=== PATIENT | male | born 1980 | race Caucasian/White ===

== ENCOUNTER 2021-10-04 09:43 | Emergency (ER) | payer BC ==
[2021-10-04 09:53] VITALS: RESP 16; TEMP 98.2
[2021-10-04] MEDS ORDERED: SODIUM CHLORIDE 0.9% 1,000 ML IV ONE (10:09)
[2021-10-04] MEDS ORDERED: KETOROLAC 15 MG/ML 1 ML VIAL IVP STA (10:09)
--- NOTE | 2021-10-04 10:39 | ED ---
General Adult HPI - General Chief complaint: Urogenital Stated complaint: Urogenital/[place] Time Seen by Provider: 10/04/21 09:56 Source: patient, RN notes reviewed, old records reviewed Mode of arrival: ambulatory Limitations: no limitations - History of Present Illness Initial comments: 41-year-old male presenting for evaluation of bilateral flank pain and hematuria. He is also has some nausea without significant vomiting. No fever. His pain is in both right and left flanks. He has no previous history of renal stone. He states that he had significant blood in his urine yesterday which did clear slightly. He has no penile rash or lesion. No testicular pain or swelling. - Related Data Previous Rx's Medication Instructions Recorded Ibuprofen [Motrin] 800 mg PO Q6HR PRN #20 tab 08/07/15 Amoxic-Pot Clav 875-125Mg 1 tab PO Q12HR #14 tablet 08/17/19 [Augmentin 875-125] Famotidine [Pepcid] 20 mg PO BID #30 tablet 08/17/19 Cefpodoxime Proxetil [Vantin] 200 mg PO Q12HR 10 Days #20 tab 10/04/21 Allergies Allergy/AdvReac Type Severity Reaction Status Date / Time No Known Allergies Allergy Verified 10/04/21 09:53 Review of Systems ROS Statement: Those systems with pertinent positive or pertinent negative responses have been documented in the HPI. ROS Other: All systems not noted in ROS Statement are negative. Past Medical History Past Medical History: GERD/Reflux Additional Past Medical History / Comment(s): Past tension headaches History of Any Multi-Drug Resistant Organisms: None Reported Past Surgical History: No Surgical Hx Reported Additional Past Surgical History / Comment(s): Pt has never had surgery Past Anesthesia/Blood Transfusion Reactions: Unable to Obtain Past Psychological History: ADD/ADHD Smoking Status: Current every day smoker Past Alcohol Use History: Occasional Past Drug Use History: None Reported - Past Family History Father Family Medical History: Myocardial Infarction ([place]) Additional Family Medical History / Comment(s): Father of a NH at the age of 62 yrs. Mother Family Medical History: No Reported History Additional Family Medical History / Comment(s): Mother is healthy General Exam Limitations: no limitations General appearance: alert, in no apparent distress Head exam: Present: atraumatic, normocephalic Eye exam: Present: normal appearance, PERRL ENT exam: Present: normal exam Neck exam: Present: normal inspection. Absent: tenderness, meningismus Respiratory exam: Present: normal lung sounds bilaterally. Absent: respiratory distress, wheezes Cardiovascular Exam: Present: regular rate, normal rhythm GI/Abdominal exam: Present: soft. Absent: distended, tenderness Extremities exam: Present: normal inspection, normal capillary refill. Absent: pedal edema, calf tenderness Neurological exam: Present: alert, oriented X3, CN II-XII intact. Absent: motor sensory deficit Psychiatric exam: Present: normal affect, normal mood Skin exam: Present: warm, dry, intact. Absent: cyanosis, diaphoretic Course Vital Signs 10/04/21 09:50 Temperature 98.2 F Pulse Rate 67 Respiratory 16 Rate Blood Pressure 126/81 O2 Sat by Pulse 97 Oximetry Medical Decision Making - Medical Decision Making CT negative for acute findings. CBC, CMP unremarkable. There is 9 white cells and rare bacteria in the urine. Patient was concern for possible STDs, GC and chlamydia are pending. He prefers to wait on this testing before treatment. He will be started on Keflex awaiting urine culture results. Given return parameters and will follow-up with his primary care physician. - Lab Data Result diagrams: 10/04/21 10:14 10/04/21 10:14 Lab Results 10/04/21 10/04/21 10/04/21 Range/Units 10:14 10:14 10:40 WBC 7.8 (3.8-10.6) k/uL RBC 4.99 (4.30-5.90) m/uL Hgb 16.0 (13.0-17.5) gm/dL Hct 47.7 (39.0-53.0) % MCV 95.6 (80.0-100.0) fL MCH 32.2 (25.0-35.0) pg MCHC 33.6 (31.0-37.0) g/dL RDW 13.4 (11.5-15.5) % Plt Count 315 (150-450) k/uL MPV 9.1 Neutrophils % 72 % Lymphocytes % 18 % Monocytes % 5 % Eosinophils % 2 % Basophils % 0 % Neutrophils # 5.6 (1.3-7.7) k/uL Lymphocytes # 1.4 (1.0-4.8) k/uL Monocytes # 0.4 (0-1.0) k/uL Eosinophils # 0.1 (0-0.7) k/uL Basophils # 0.0 (0-0.2) k/uL Sodium 140 (137-145) mmol/L Potassium 3.9 (3.5-5.1) mmol/L Chloride 109 H (98-107) mmol/L Carbon Dioxide 23 (22-30) mmol/L Anion Gap 8 mmol/L BUN 10 (9-20) mg/dL Creatinine 0.84 (0.66-1.25) mg/dL Est GFR (CKD-EPI)AfAm >90 (>60 ml/min/1.73 sqM) Est GFR (CKD-EPI)NonAf >90 (>60 ml/min/1.73 sqM) Glucose 110 H (74-99) mg/dL Calcium 9.4 (8.4-10.2) mg/dL Total Bilirubin 1.6 H (0.2-1.3) mg/dL AST 24 (17-59) U/L ALT 19 (4-49) U/L Alkaline Phosphatase 101 (38-126) U/L Total Protein 6.7 (6.3-8.2) g/dL Albumin 4.2 (3.5-5.0) g/dL Urine Color Yellow Urine Appearance Clear (Clear) Urine pH 6.0 (5.0-8.0) Ur Specific [place] 1.016 (1.001-1.035) Urine Protein Negative (Negative) Urine Glucose (UA) Negative (Negative) Urine Ketones Negative (Negative) Urine Blood Negative (Negative) Urine Nitrite Negative (Negative) Urine Bilirubin Negative (Negative) Urine Urobilinogen <2.0 (<2.0) mg/dL Ur Leukocyte Esterase Moderate H (Negative) Urine RBC <1 (0-5) /hpf Urine WBC 9 H (0-5) /hpf Ur Squamous Epith Cells <1 (0-4) /hpf Urine Bacteria Rare H (None) /hpf Hyaline Casts 6 H (0-2) /lpf Urine Mucus Few H (None) /hpf Disposition Clinical Impression: UTI (urinary tract infection) Disposition: HOME SELF-CARE Condition: Good Instructions (If sedation given, give patient instructions): Urinary Tract Infection in Men (ED) Prescriptions: Cefpodoxime Proxetil [Vantin] 200 mg PO Q12HR 10 Days #20 tab Is patient prescribed a controlled substance at d/c from ED?: No Referrals: Devan Sales MD [Primary Care Provider] - 1-2 days Time of Disposition: 11:08
[2021-10-04 10:44] LABS: ALT 19 U/L (4-49); AST 24 U/L (17-59); African American GFR (CKD) >90 (>60 ml/min/1.73 sqM); Albumin 4.2 g/dL (3.5-5.0); Alkaline Phosphatase 101 U/L (38-126); Anion Gap 8 mmol/L; Blood Urea Nitrogen 10 mg/dL (9-20); Calcium 9.4 mg/dL (8.4-10.2); Carbon Dioxide 23 mmol/L (22-30); Chloride 109 mmol/L (98-107); Glucose 110 mg/dL (74-99); Non-African American GFR(CKD) >90 (>60 ml/min/1.73 sqM); Potassium 3.9 mmol/L (3.5-5.1); Sodium 140 mmol/L (137-145); Total Bilirubin 1.6 mg/dL (0.2-1.3); Total Protein 6.7 g/dL (6.3-8.2)
[2021-10-04 10:49] LABS: Basophils % (A) 0 %; Eosinophils # (A) 0.1 k/uL (0-0.7); Eosinophils % (A) 2 %; HCT 47.7 % (39.0-53.0); Lymphocytes # (A) 1.4 k/uL (1.0-4.8); Lymphocytes % (A) 18 %; MCH 32.2 pg (25.0-35.0); MCHC 33.6 g/dL (31.0-37.0); MCV 95.6 fL (80.0-100.0); Mean Platelet Volume 9.1; Monocytes # (A) 0.4 k/uL (0-1.0); Monocytes % (A) 5 %; Neutrophils # (A) 5.6 k/uL (1.3-7.7); Neutrophils % (A) 72 %; Platelet Count 315 k/uL (150-450); RBC 4.99 m/uL (4.30-5.90); RDW 13.4 % (11.5-15.5); WBC 7.8 k/uL (3.8-10.6)
--- NOTE | 2021-10-04 10:58 | CT ---
EXAMINATION TYPE: CT abdomen pelvis wo con DATE OF EXAM: 10/04/2021 HISTORY: hematuria, bilateral flank pain into low back. CT DLP: 725.5 mGycm. Automated Exposure Control for Dose Reduction was Utilized. TECHNIQUE: CT scan of the abdomen and pelvis is performed without oral or IV contrast. COMPARISON: Prior CT 2011 FINDINGS: Within the limitations of a non-contrast study, the following observations are made. LUNG BASES: Dependent atelectasis. LIVER/GB: No significant abnormality is appreciated. PANCREAS: No significant abnormality is seen. SPLEEN: No significant abnormality is seen. ADRENALS: No significant abnormality is seen. KIDNEYS: No renal calculi or hydronephrosis is seen bilaterally. BOWEL: Incidental normal-appearing appendix redemonstrated. GENITAL ORGANS: Normal sized prostate. Scattered bilateral pelvic phleboliths are more prominent from prior LYMPH NODES: No greater than 1cm abdominal or pelvic lymph nodes are appreciated. OSSEOUS STRUCTURES: No significant abnormality is seen. OTHER: Mild to moderate calcified plaque of the distal abdominal aorta extends into iliac branch vess els. Small fat-containing left inguinal hernia. IMPRESSION: No renal stones or hydronephrosis is seen bilaterally. No suspicious new or acute finding s present.
[2021-10-04 11:00] LABS: Appearance,Urine Clear (Clear); Bacteria,Urine Rare /hpf; Bilirubin,Urine Negative (Negative); Blood,Urine Negative (Negative); Color,Urine Yellow; Glucose,Urine (UA) Negative (Negative); Hyaline Casts,Urine 6 /lpf (0-2); Ketones,Urine Negative (Negative); Leukocyte Esterase,Urine Moderate (Negative); Mucus,Urine Few /hpf; Nitrite,Urine Negative (Negative); Protein,Urine Negative (Negative); RBC,Urine <1 /hpf (0-5); Specific Gravity,Urine 1.016 (1.001-1.035); Squamous Epithelial Cell,Urine <1 /hpf (0-4); Urobilinogen,Urine <2.0 mg/dL (<2.0); WBC,Urine 9 /hpf (0-5)
[2021-10-04 11:19] VITALS: BP 121/83; PULSE 72
[2021-10-05 14:16] LABS: C. trachomatis,PCR Negative (Neg,Equiv); Chlamydia trachomatis Source Urine; N. gonorrhoeae,PCR Negative (Neg,Equiv); Neisseria Source Urine
== END 2021-10-04 11:38 | disposition home or self-care (01) ==
LOC: EC 09:43
DX: N39.0 Urinary tract infection, site not specified (principal); F17.200 Nicotine dependence, unspecified, uncomplicated
CPT/HCPCS: 36415; 80053; 85025; 81001; 87491; 87591; 74176; 99284; 96374; 96361; J1885

== ENCOUNTER 2022-02-04 03:37 | Inpatient (IN) | payer BC ==
[2022-02-04] MEDS ORDERED: NICOTINE 21MG/24HR PATCH TRANSDERM STA (04:05)
[2022-02-04 04:37] LABS: Amphetamine Screen,Urine Not Detected (NotDetected); Barbiturate Screen,Urine Not Detected (NotDetected); Benzodiazepines Screen,Urine Not Detected (NotDetected); Cocaine Screen,Urine Not Detected (NotDetected); Methadone Screen, Urine Not Detected (NotDetected); Opiate Screen,Urine Not Detected (NotDetected); Oxycodone Screen, Urine Not Detected (NotDetected); Phencyclidine Screen,Urine Not Detected (NotDetected); Tricyclic Antidepressant,Urine Not Detected (NotDetected); Urn Cannabinoid Scrn Not Detected (NotDetected)
--- NOTE | 2022-02-04 15:00 | ED ---
General Adult HPI - General Source: family, EMS Mode of arrival: EMS Limitations: no limitations <MarbinTaiwo - Last Filed: 02/05/22 08:46> - History of Present Illness -: hour(s) Severity scale (1-10): 0 Consistency: constant Improves with: none Worsens with: none Associated Symptoms: denies other symptoms <Jomar Mcleod - Last Filed: 02/09/22 05:37> - General Chief complaint: Psychiatric Symptoms Stated complaint: Mental Health Time Seen by Provider: 02/04/22 04:00 - History of Present Illness Initial comments: This patient is a 41-year-old man brought to have psychiatric evaluation after making suicidal statements to his family member. When I interviewed the patient, he did not want to discuss that episode. Denies medical complaint. (Jomar Mcleod) - Related Data Home Medications Medication Instructions Recorded Confirmed No Known Home Medications 02/04/22 02/04/22 Previous Rx's Medication Instructions Recorded FLUoxetine HCL [PROzac] 30 mg PO DAILY 30 Days cap 02/08/22 traZODone HCL [Desyrel] 100 mg PO HS PRN 30 Days tab 02/08/22 Allergies Allergy/AdvReac Type Severity Reaction Status Date / Time No Known Allergies Allergy Verified 02/04/22 12:23 Review of Systems ROS Other: All systems not noted in ROS Statement are negative. <Taiwo Zazueta - Last Filed: 02/05/22 08:46> ROS Other: All systems not noted in ROS Statement are negative. Constitutional: Denies: fever Respiratory: Denies: cough, dyspnea Cardiovascular: Denies: chest pain, palpitations Gastrointestinal: Denies: abdominal pain, vomiting Genitourinary: Denies: dysuria, hematuria Musculoskeletal: Denies: back pain Skin: Denies: rash Neurological: Denies: headache Psychiatric: Reports: as per HPI, suicidal thoughts. Denies: auditory hallucinations, visual hallucinations, homicidal thoughts <Jomar Mcleod - Last Filed: 02/09/22 05:37> ROS Statement: Those systems with pertinent positive or pertinent negative responses have been documented in the HPI. Past Medical History Past Medical History: GERD/Reflux Additional Past Medical History / Comment(s): Past tension headaches History of Any Multi-Drug Resistant Organisms: None Reported Past Surgical History: No Surgical Hx Reported Additional Past Surgical History / Comment(s): Pt has never had surgery Past Anesthesia/Blood Transfusion Reactions: Unable to Obtain Past Psychological History: ADD/ADHD Smoking Status: Current every day smoker Past Alcohol Use History: Occasional Past Drug Use History: None Reported - Past Family History Father Family Medical History: Myocardial Infarction (MS) Additional Family Medical History / Comment(s): Father of a [place] at the age of 62 yrs. Mother Family Medical History: No Reported History Additional Family Medical History / Comment(s): Mother is healthy <MarbinTaiwo - Last Filed: 02/05/22 08:46> General Exam Limitations: no limitations <MarbinTaiwo - Last Filed: 02/05/22 08:46> General appearance: alert, in no apparent distress Head exam: Present: atraumatic, normocephalic Eye exam: Present: normal appearance. Absent: scleral icterus, conjunctival injection Neck exam: Present: normal inspection Respiratory exam: Present: normal lung sounds bilaterally. Absent: respiratory distress, wheezes, rales, rhonchi, stridor Cardiovascular Exam: Present: regular rate, normal rhythm, normal heart sounds. Absent: systolic murmur, diastolic murmur, rubs, gallop GI/Abdominal exam: Present: soft. Absent: distended, tenderness, guarding, rebound Extremities exam: Present: normal inspection Neurological exam: Present: alert Psychiatric exam: Present: suicidal ideation. Absent: agitated, anxious, flat affect, manic, homicidal ideation Skin exam: Present: warm, dry, intact, normal color. Absent: rash <Jomar Mcleod - Last Filed: 02/09/22 05:37> Course Vital Signs 02/04/22 03:46 Temperature 97.5 F L Pulse Rate 81 Respiratory 18 Rate Blood Pressure 151/92 O2 Sat by Pulse 98 Oximetry Medical Decision Making <Taiwo Zazueta - Last Filed: 02/05/22 08:46> - Lab Data Result diagrams: 02/05/22 09:59 02/05/22 09:59 <Jomar Mcleod - Last Filed: 02/09/22 05:37> - Medical Decision Making Patient was signed out to me pending psychiatric evaluation. Was medically cleared by the prior physician Dr. Mcleod. Patient was petitioned. Petition states "he had a gun held under his chin. He said he couldn't live anymore." P atient was petitioned by his friend/sister. EPS evaluated the patient and would like to admitted to inpatient psychiatry. Certification was completed by myself. Patient does not want to be admitted. He and family members are asking to speak with EPS again. I notified EPS. (Taiwo Zazueta) - Lab Data Lab Results 02/04/22 02/04/22 Range/Units 04:01 17:18 Urine Opiates Screen Not Detected (NotDetected) Ur Oxycodone Screen Not Detected (NotDetected) Urine Methadone Screen Not Detected (NotDetected) Ur Propoxyphene Screen Not Detected (NotDetected) Ur Barbiturates Screen Not Detected (NotDetected) U Tricyclic Antidepress Not Detected (NotDetected) Ur Phencyclidine Scrn Not Detected (NotDetected) Ur Amphetamines Screen Not Detected (NotDetected) U Methamphetamines Scrn Not Detected (NotDetected) U Benzodiazepines Scrn Not Detected (NotDetected) Urine Cocaine Screen Not Detected (NotDetected) U Marijuana (THC) Screen Not Detected (NotDetected) Coronavirus (PCR) Not Detected (Not Detectd) Disposition <Taiwo Zazueta - Last Filed: 02/05/22 08:46> <Jomar Mcleod - Last Filed: 02/09/22 05:37> Clinical Impression: Suicidal behavior, Encounter for psychiatric assessment Disposition: TRANSFER TO PSYCH HOSP/UNIT Condition: Stable
[2022-02-04] MEDS ORDERED: LORazepam 1 MG TAB PO STA (15:48)
[2022-02-04] MEDS ORDERED: haloperidoL 5 MG TAB PO PRN (19:18)
[2022-02-04] MEDS ORDERED: LORazepam 1 MG/0.5 ML VIAL IM PRN (19:18)
[2022-02-04] MEDS ORDERED: HALOPERIDOL LACTATE 5 MG/ML 1 ML VIAL IM PRN (19:18)
[2022-02-04] MEDS ORDERED: MAGNESIUM HYDROXIDE 2,400 MG/10 ML CUP PO PRN (19:18)
[2022-02-04] MEDS ORDERED: ACETAMINOPHEN TAB 325 MG TAB PO PRN (19:18)
[2022-02-04] MEDS ORDERED: MAG HYDROX/AL HYDROX/SIMETH 30 ML CUP PO PRN (19:18)
[2022-02-05] MEDS: LORazepam 1 MG TAB PO PRN (02:56)
--- NOTE | 2022-02-05 03:34 | P.CONS ---
History of Present Illness - Reason for Consult Consult date: 02/05/22 - History of Present Illness The patient is a 41-year-old male with a PMH of tobacco abuse and marijuana abuse who presented to the emergency room with complaints of depression and suicidal ideation. The patient was admitted to the mental health unit where he was seen and evaluated. The patient reports that he has been depressed and having thoughts of committing suicide by shooting himself due to his worsening financial situation. He did not wish to disclose further. He denied any physical complaints at the time of interview. Denied experiencing chest discomfort, shortness of breath, fever, chills, cough, nausea, vomiting, abdominal pain, diarrhea. Reports recreational marijuana use. Denies use of any additional illicit substances. Reports smoking half pack of cigarettes daily for the past several years. Review of systems: Pertinent positives and negatives as discussed in HPI, a complete review of systems was performed and all other systems are negative. Physical examination: General: non toxic, no distress, appears at stated age, normal weight Derm: no unusual rashes/lesions, no unusual ecchymoses, warm, dry Head: atraumatic, normocephalic, symmetric Eyes: EOMI, no lid lag, anicteric sclera ENT: Nose and ears atraumatic, no thrush, no pharyngeal erythema Neck: trachea midline, supple Mouth: no lip lesion, mucus membranes moist Cardiovascular: S1S2 reg, no murmur, no edema Lungs: CTA bilateral, no rhonchi, no rales , no accessory muscle use Abdominal: soft, nontender to palpation, no guarding Ext: no gross muscle atrophy, no contractures, Neuro: No gross focal neuro deficits noted Psych: Alert, oriented, appropriate affect Assessment/plan Marijuana abuse, tobacco abuse -Advised on importance of cessation Depression and suicidal ideation -As per psychiatry Thank you for allowing us to participate in the care of this patient. We will follow peripherally. Do not hesitate to contact us with questions. Someone can be reached from the [facility] hospitalist group at all hours of the day at [phone]. Past Medical History Past Medical History: GERD/Reflux Additional Past Medical History / Comment(s): Past tension headaches History of Any Multi-Drug Resistant Organisms: None Reported Past Surgical History: No Surgical Hx Reported Additional Past Surgical History / Comment(s): Pt has never had surgery Past Anesthesia/Blood Transfusion Reactions: No Reported Reaction Past Psychological History: ADD/ADHD Additional Psychological History / Comment(s): Pt resides with his mother. He is independent. He denies any depression/suicidal thoughts/plans. Smoking Status: Current every day smoker Past Alcohol Use History: Occasional Additional Past Alcohol Use History / Comment(s): Pt started smoking in 1994 and is unable to states amount, stating it varies depending on the day. Past Drug Use History: None Reported - Past Family History Father Family Medical History: Myocardial Infarction ([place]) Additional Family Medical History / Comment(s): Father of a [place] at the age of 62 yrs. Mother Family Medical History: Hypertension Additional Family Medical History / Comment(s): Mother is healthy Medications and Allergies Home Medications Medication Instructions Recorded Confirmed Type No Known Home Medications 02/04/22 02/04/22 History Allergies Allergy/AdvReac Type Severity Reaction Status Date / Time No Known Allergies Allergy Verified 02/04/22 12:23 Physical Exam Vitals: Vital Signs Temp Pulse Pulse Resp BP BP Pulse Ox 02/05/22 02:59 97.6 F 81 16 130/96 02/04/22 20:39 98.2 F 109 H 18 110/81 98 02/04/22 03:46 97.5 F L 81 18 151/92 98 Intake and Output 02/04/22 02/04/22 02/05/22 14:59 22:59 06:59 Other: Weight 85.638 kg
[2022-02-05] MEDS: NICOTINE 21MG/24HR PATCH TRANSDERM SCH (09:31)
[2022-02-05 10:54] LABS: Basophils # (A) 0.1 k/uL (0-0.2); Basophils % (A) 1 %; Eosinophils # (A) 0.1 k/uL (0-0.7); Eosinophils % (A) 1 %; HCT 51.9 % (39.0-53.0); HGB 17.1 gm/dL (13.0-17.5); Lymphocytes % (A) 20 %; MCH 32.3 pg (25.0-35.0); MCV 97.7 fL (80.0-100.0); Mean Platelet Volume 8.4; Monocytes # (A) 0.5 k/uL (0-1.0); Monocytes % (A) 4 %; Neutrophils # (A) 7.5 k/uL (1.3-7.7); Neutrophils % (A) 73 %; Platelet Count 310 k/uL (150-450); RBC 5.31 m/uL (4.30-5.90); RDW 13.4 % (11.5-15.5); WBC 10.3 k/uL (3.8-10.6)
[2022-02-05 11:22] LABS: ALT 23 U/L (4-49); AST 28 U/L (17-59); African American GFR (CKD) >90 (>60 ml/min/1.73 sqM); Albumin 3.7 g/dL (3.5-5.0); Alkaline Phosphatase 100 U/L (38-126); Anion Gap 5 mmol/L; Bilirubin, Delta 0.2 mg/dL (0.0-0.2); Bilirubin,Unconjugated 1.4 mg/dL (0.0-1.1); Blood Urea Nitrogen 14 mg/dL (9-20); Calcium 9.1 mg/dL (8.4-10.2); Carbon Dioxide 30 mmol/L (22-30); Chloride 104 mmol/L (98-107); Glucose 83 mg/dL (74-99); Non-African American GFR(CKD) >90 (>60 ml/min/1.73 sqM); Sodium 139 mmol/L (137-145); Total Bilirubin 1.6 mg/dL (0.2-1.3); Total Protein 5.9 g/dL (6.3-8.2)
[2022-02-05] MEDS ORDERED: FLUoxetine HCL 20 MG CAP PO STA (11:40)
--- NOTE | 2022-02-05 13:57 | P.HP ---
Psychiatric H&P - . H&P Date: 02/05/22 History & Physical: Allergies Allergy/AdvReac Type Severity Reaction Status Date / Time No Known Allergies Allergy Verified 02/04/22 12:23 Vital Signs Temp 97.6 F 02/05/22 02:59 Pulse 81 02/05/22 02:59 Resp 16 02/05/22 02:59 BP 130/96 02/05/22 02:59 Pulse Ox 98 02/04/22 20:39 FiO2 Intake & Output 02/04/22 02/05/22 02/05/22 18:59 06:59 18:59 Weight 85.638 kg Laboratory Last Values WBC 10.3 k/uL (3.8-10.6) 02/05/22 09:59 RBC 5.31 m/uL (4.30-5.90) 02/05/22 09:59 Hgb 17.1 gm/dL (13.0-17.5) 02/05/22 09:59 Hct 51.9 % (39.0-53.0) 02/05/22 09:59 MCV 97.7 fL (80.0-100.0) 02/05/22 09:59 MCH 32.3 pg (25.0-35.0) 02/05/22 09:59 MCHC 33.0 g/dL (31.0-37.0) 02/05/22 09:59 RDW 13.4 % (11.5-15.5) 02/05/22 09:59 Plt Count 310 k/uL (150-450) 02/05/22 09:59 MPV 8.4 02/05/22 09:59 Neutrophils % 73 % 02/05/22 09:59 Lymphocytes % 20 % 02/05/22 09:59 Monocytes % 4 % 02/05/22 09:59 Eosinophils % 1 % 02/05/22 09:59 Basophils % 1 % 02/05/22 09:59 Neutrophils # 7.5 k/uL (1.3-7.7) 02/05/22 09:59 Lymphocytes # 2.0 k/uL (1.0-4.8) 02/05/22 09:59 Monocytes # 0.5 k/uL (0-1.0) 02/05/22 09:59 Eosinophils # 0.1 k/uL (0-0.7) 02/05/22 09:59 Basophils # 0.1 k/uL (0-0.2) 02/05/22 09:59 Sodium 139 mmol/L (137-145) 02/05/22 09:59 Potassium 4.0 mmol/L (3.5-5.1) 02/05/22 09:59 Chloride 104 mmol/L (98-107) 02/05/22 09:59 Carbon Dioxide 30 mmol/L (22-30) 02/05/22 09:59 Anion Gap 5 mmol/L 02/05/22 09:59 BUN 14 mg/dL (9-20) 02/05/22 09:59 Creatinine 0.99 mg/dL (0.66-1.25) 02/05/22 09:59 Est GFR (CKD-EPI)AfAm >90 (>60 ml/min/1.73 sqM) 02/05/22 09:59 Est GFR (CKD-EPI)NonAf >90 (>60 ml/min/1.73 sqM) 02/05/22 09:59 Glucose 83 mg/dL (74-99) 02/05/22 09:59 Calcium 9.1 mg/dL (8.4-10.2) 02/05/22 09:59 Total Bilirubin 1.6 mg/dL (0.2-1.3) H 02/05/22 09:59 Conjugated Bilirubin 0.0 mg/dL (0.0-0.3) 02/05/22 09:59 Unconjugated Bilirubin 1.4 mg/dL (0.0-1.1) H 02/05/22 09:59 Delta Bilirubin 0.2 mg/dL (0.0-0.2) 02/05/22 09:59 AST 28 U/L (17-59) 02/05/22 09:59 ALT 23 U/L (4-49) 02/05/22 09:59 Alkaline Phosphatase 100 U/L (38-126) 02/05/22 09:59 Total Protein 5.9 g/dL (6.3-8.2) L 02/05/22 09:59 Albumin 3.7 g/dL (3.5-5.0) 02/05/22 09:59 TSH 2.540 mIU/L (0.465-4.680) 02/05/22 09:59 Urine Opiates Screen Not Detected (NotDetected) 02/04/22 04:01 Ur Oxycodone Screen Not Detected (NotDetected) 02/04/22 04:01 Urine Methadone Screen Not Detected (NotDetected) 02/04/22 04:01 Ur Propoxyphene Screen Not Detected (NotDetected) 02/04/22 04:01 Ur Barbiturates Screen Not Detected (NotDetected) 02/04/22 04:01 U Tricyclic Antidepress Not Detected (NotDetected) 02/04/22 04:01 Ur Phencyclidine Scrn Not Detected (NotDetected) 02/04/22 04:01 Ur Amphetamines Screen Not Detected (NotDetected) 02/04/22 04:01 U Methamphetamines Scrn Not Detected (NotDetected) 02/04/22 04:01 U Benzodiazepines Scrn Not Detected (NotDetected) 02/04/22 04:01 Urine Cocaine Screen Not Detected (NotDetected) 02/04/22 04:01 U Marijuana (THC) Screen Not Detected (NotDetected) 02/04/22 04:01 Coronavirus (PCR) Not Detected (Not Detectd) 02/04/22 17:18 02/05/22 13:57 IDENTIFYING DATA: Patient is a , employed, 41-year-old male with no significant psychiatric history who presented to Hospital under petition and certification for a suicide attempt with a firearm. HPI: Patient presented to the hospital on 02/04/2022, brought in under petition for "having a gun held under his chin and stating that he couldn't live anymore." The patient was also noted to be intoxicated with a BAT of 104 upon arrival to the emergency department. The patient expressed extreme shame for his actions. He was subsequently admitted to the psychiatric unit. Upon assessment on the psychiatric unit, the patient reports that he has been feeling increasingly stressed since November of this year. Patient reports that he recently changed jobs and went from making $30 an hour to $17 an hour. He has been picking up extra shifts in order to make ends meet and has been falling behind on bills. The patient reports that he has been working 7 days per week, 12 hour shifts, often starting at midnight. He reports that he has been having a very difficult time with sleep and this all culminated with him drinking and placing a firearm to his head. He reports that he was stopped by his sister and was subsequently brought to the hospital. The patient does endorse significant symptoms of depression including anhedonia, if Luis with sleep, 18 pound weight loss over the past month, feelings of excessive guilt, and low motivation. Prior to putting a gun to his head that led to this admission, the patient denies any other suicide attempts. The patient is not reporting any other significant mood symptoms. He reports a significant history of tomasa and denies any periods of excessive energy, impulsivity, or grandiosity. He reports no significant history of psychosis. He denies any auditory or visual hallucinations. He denies any paranoia or other delusions. The patient expresses a strong desire to live to be there for his 9-year-old daughter who he has 50% custody with his ex- with. The patient and family also informed the treatment team that the firearms from the home. He expresses a desire not to be admitted to the psychiatric unit however has been agreeable to commence treatment and to sign himself voluntarily on to the psychiatric unit. PAST PSYCHIATRIC HISTORY: Patient states that he has a history of cocaine abuse. Patient denies being on any psychiatric medications. Patient denies any previous psychiatric hospitalizations. Patient denies any psychiatric outpatient follow- up. Prior to this most recent attempt, the patient denies any history of suicide attempts. PMH: Patient reports TBI after falling off a lift at work approximately one year ago. ALLERGIES: NO KNOWN DRUG ALLERGIES CHEMICAL DEPENDENCY HISTORY: The patient reports that he smokes 1-2 packs per day depending on his stress level. He also reports occasional marijuana use. He states that he last used cocaine 2 years ago. He reports rare alcohol use however does admit to drinking 7-8 beers prior to this suicide attempt. He reports a history of rehab for his cocaine use disorder 2 years ago. FAMILY PSYCHIATRIC/SUBSTANCE USE HISTORY: The patient reports his father was an alcoholic. SOCIAL HISTORY: Patient was born and raised in [place], [place]. He is currently employed in a factory. He is as of 2016 after being to his ex- for 5 years. They have a 9-year-old daughter together named Laura. He reports an 11th grade education. He denies any legal issues. His brother 30 years ago from cancer. He currently lives alone, except when he has custody of his daughter. MENTAL STATUS EXAM: General Appearance: Patient appears to be stated age is alert, directable, and attempts to cooperate. Patient appears to have slightly disheveled hygiene and grooming. The patient has significant bags underneath his eyes. Behavior: Patient is seated without any agitated behavior. Speech: Patient's speech is fluent and nonpressured. Mood/Affect: Patient reports their mood is "stressed," affect is congruent and irritable Suicidality/Homicidality: Patient is vehemently denying any suicidal or homicidal ideation. Perceptions: Patient denies any visual hallucinations and denies any auditory hallucinations Though content/process: There is no evidence of any delusional thought content and thought process is linear and goal-directed. Memory and concentration: AOX3, grossly intact for the purposes of this session. Can spell "WORLD" backwards Judgment and insight: Fair STRENGTHS/WEAKNESSES: Strength is that the patient has a supportive family, has no psychiatric history prior to this suicide attempt, has a strong duty to his family (especially his daughter), and has no more access to his firearms (confirmed by family). Weakness is that the patient has a prior attempt at suicide after this event. INTELLECT: average IMPRESSIONS: Major depressive disorder, single episode Tobacco use disorder PLAN: -Patient is admitted under voluntary status to [facility]HU for stabilization of psychiatric symptoms and safety. Patient signed adult voluntary form and medication consent and is placed in patient's chart. -Medications : Will start patient on Prozac 20 mg by mouth daily with plans to increase to 30 mg tomorrow for management of depression Trazodone 50 mg by mouth at bedtime when necessary for insomnia -Ativan and Haldol PRN for agitation/aggression -Patient was counselled on substance abuse and desired to cut back on use -Patient was informed of the risks, benefits and side effects of the medication and patient verbally consented to taking the medications. Patient signed med consent form and was placed in chart. -Internal Medicine consult to perform medical evaluation and physical. -NRT - nicotine patch -SW on board for discharge planning. Encourage patient to participate in groups to work on coping skills.
[2022-02-05 17:52] LABS: Chol/HDL Ratio 5.89 Ratio; LDL Cholesterol,Calculated 136.3 mg/dL (0.0-131.0)
[2022-02-05] MEDS: traZODone HCL 50 MG TAB PO PRN (20:06)
[2022-02-06] MEDS: LORazepam 1 MG TAB PO PRN (02:28)
[2022-02-06] MEDS: NICOTINE 21MG/24HR PATCH TRANSDERM SCH (08:25)
[2022-02-06] MEDS: FLUoxetine HCL 10 MG CAP PO SCH (08:26)
--- NOTE | 2022-02-06 11:35 | P.PN ---
Progress Note - Text Progress Note Date: 02/06/22 Clinical Problems: Major depressive disorder single episode, tobacco use Interim history: I reviewed the medical record and interviewed the patient. He complained about the circumstances that led to this hospitalization. He felt that he was "pressured" to agree to voluntary admission although he does not believe that he needs inpatient psychiatric treatment. He wishes to return home to take care of his young daughter. He expressed a willingness to continue with outpatient services and talked about positive past experiences with meeting with a therapist. She alleges that he has "vague" recollection of putting the gun to his head. He denied current thoughts of or suicide. He confirmed that his sister removed all firearms from his house. He has been compliant with prescribed medications. He has attended some therapeutic groups and activities. He slept 6 hours last night. He is posed no management problem and has had no episodes of behavioral dyscontrol. Mental status exam: He presented as a casually groomed 41-year-old male who looked tired and fatigued. He made eye contact and attended the interview. He had no distinguishing features or prominent physical abnormalities. He had a sad facial expression. He was alert and oriented to person, place and time. He showed no abnormality of psychomotor activity. His gait was slow but steady. His speech was spontaneous with normal rate, volume and rhythm. He had no articulation difficulties. His affect was depressed but not inappropriate or intents. He denied current suicidal ideation or wishes. He denied homicidal ideation. He expressed feelings of hopelessness and helplessness. He ruminated over employment problems particularly reviewed the cut in pay that he had to except. He did not express ideas reference, paranoid ideation, magical ideation or delusions. His thinking was concrete but his associations were coherent, logical and goal directed. He denied hallucinations did not appear to be responding to internal stimuli. Assessment: He is denying current suicidal ideation or wishes however he continues to have signs and symptoms of his depressive disorder. Plan: Continue inpatient treatment. Safety precautions. Prozac 30 mg daily and trazodone 50 mg at bedtime when necessary for sleep. Habitrol for smoking cessation. Encouraged participation in therapeutic groups and activities. Evaluate clinical status response to treatment daily basis.
[2022-02-06] MEDS: traZODone HCL 50 MG TAB PO PRN (21:16)
[2022-02-07] MEDS: LORazepam 1 MG TAB PO PRN (02:30)
[2022-02-07] MEDS: NICOTINE 21MG/24HR PATCH TRANSDERM SCH (08:31)
[2022-02-07] MEDS: FLUoxetine HCL 10 MG CAP PO SCH (08:31)
[2022-02-07] MEDS ORDERED: traZODone HCL 100 MG TAB PO PRN (14:54)
--- NOTE | 2022-02-07 15:02 | P.PN ---
Progress Note - Text Progress Note Date: 02/07/22 Clinical Problems: Major depressive disorder single episode, tobacco use Interim history: I reviewed the medical record and interviewed the patient. He denied problems and his only concern was discharge and returning home. He denied feeling depressed or having thoughts of or suicide. He has been compliant with prescribed medications. He has attended some therapeutic groups and activities. He slept 6 hours last night. He is posed no management problem and has had no episodes of behavioral dyscontrol. Mental status exam: He presented as a casually groomed 41-year-old male who looked tired and fatigued. He made eye contact and attended the interview. He had no distinguishing features or prominent physical abnormalities. He had a sad facial expression. He was alert and oriented to person, place and time. He showed no abnormality of psychomotor activity. His gait was slow but steady. His speech was spontaneous with normal rate, volume and rhythm. He had no articulation difficulties. His affect was depressed but not inappropriate or intents. He denied current suicidal ideation or wishes. He denied homicidal ideation. He expressed feelings of hopelessness and helplessness. He ruminated over employment problems particularly reviewed the cut in pay that he had to except. He did not express ideas reference, paranoid ideation, magical ideation or delusions. His thinking was concrete but his associations were coherent, logical and goal directed. He denied hallucinations did not appear to be responding to internal stimuli. Assessment: He is moderately mentally ill markedly improve from admission. Plan: Continue inpatient treatment. Safety precautions. Prozac 30 mg daily and increase trazodone 100 mg at bedtime when necessary for sleep. Habitrol for smoking cessation. Encouraged participation in therapeutic groups and activiti es. Evaluate clinical status response to treatment daily basis.
[2022-02-08] MEDS: LORazepam 1 MG TAB PO PRN (05:22)
[2022-02-08 05:25] VITALS: BP 107/74; PULSE 87; RESP 20; TEMP 98.1
[2022-02-08] MEDS: FLUoxetine HCL 10 MG CAP PO SCH (08:37)
[2022-02-08] MEDS: NICOTINE 21MG/24HR PATCH TRANSDERM SCH (08:37)
--- NOTE | 2022-02-08 12:22 | P.DS ---
Providers Date of admission: 02/04/22 19:01 Expected date of discharge: 02/08/22 Attending physician: Slim Piper MD Consults: 02/04/22 19:18 Consult Physician Routine Consulting Provider: Simeon Anderson Consult Reason/Comments: Medical H&P Do you want consulting provider notified?: Yes Primary care physician: Stated None - Discharge Diagnosis(es) (1) Major depressive disorder, single episode Current Visit: Yes Status: Acute Priority: High (2) Tobacco use disorder Current Visit: Yes Status: Chronic Priority: Medium Hospital Course: Admission HPI: Patient is a , employed, 41-year-old male with no significant psychiatric history who presented to Hospital under petition and certification for a suicide attempt with a firearm. Patient presented to the hospital on 02/04/2022, brought in under petition for "having a gun held under his chin and stating that he couldn't live anymore." The patient was also noted to be intoxicated with a BAT of 104 upon arrival to the emergency department. The patient expressed extreme shame for his actions. He was subsequently admitted to the psychiatric unit. Upon assessment on the psychiatric unit, the patient reports that he has been feeling increasingly stressed since November of this year. Patient reports that he recently changed jobs and went from making $30 an hour to $17 an hour. He has been picking up extra shifts in order to make ends meet and has been falling behind on bills. The patient reports that he has been working 7 days per week, 12 hour shifts, often starting at midnight. He reports that he has been having a very difficult time with sleep and this all culminated with him drinking and placing a firearm to his head. He reports that he was stopped by his sister and was subsequently brought to the hospital. The patient does endorse significant symptoms of depression including anhedonia, if Luis with sleep, 18 pound weight loss over the past month, feelings of excessive guilt, and low motivation. Prior to putting a gun to his head that led to this admission, the patient denies any other suicide attempts. The patient is not reporting any other significant mood symptoms. He reports a significant history of tomasa and denies any periods of excessive energy, impulsivity, or grandiosity. He reports no significant history of psychosis. He denies any auditory or visual hallucinations. He denies any paranoia or other delusions. The patient expresses a strong desire to live to be there for his 9-year-old daughter who he has 50% custody with his ex- with. The patient and family also informed the treatment team that the firearms from the home. He expresses a desire not to be admitted to the psychiatric unit however has been agreeable to commence treatment and to sign himself voluntarily on to the psychiatric unit. Patient states that he has a history of cocaine abuse. Patient denies being on any psychiatric medications. Patient denies any previous psychiatric hospitalizations. Patient denies any psychiatric outpatient follow-up. Prior to this most recent attempt, the patient denies any history of suicide attempts. Hospital course: Upon admission to the unit patient was initially presenting as irritable and upset for his psychiatric hospitalization and minimized the events leading up to his hospitalization including his suicide attempt. Patient was however directable and agreeable to commence treatment. Patient got along well with other patients on the unit and followed unit protocol. Patient was compliant with the medications and denied any side effects throughout hospital course. Patient was started on Prozac and trazodone for depression/anxiety/insomnia. Patient spoke of his stressors and engaged in therapy both group and individual. Patient was also seen by medical team for history and physical exam. Over the course the hospital physician, the patient became more cooperative and polite with staff and peers. He also had a significant improvement in sleep and rest and became more approachable. Was more linear and logical conversation and also became more future and goal oriented. Collateral information was obtained by the patient's mother who reported the patient has no significant history of depression or suicide attempts in the past. The patient has numerous protective factors including his duty to his family, his career, and the support he receives from his family. Furthermore, the patient's mother confirmed that the firearms have been removed from the home. On the day of discharge, the patient is vehemently denying any suicidal or homicidal ideation, intention, and/or plan. He is not reporting any auditory or visual hallucinations. He denies any firearms or other weapons. He reports no paranoia or other delusions. The patient has been adherent with his medications and is not endorsing any significant side effects at this time. The patient was counseled lengthening po ints of medication adherence and appropriate outpatient follow-up. Furthermore, the patient does have a significant history of substance use and was counseled at great length on abstaining from all substances including binge alcohol episodes. Prior to discharge, family meeting was arranged by social work has any questions and ensure safety. Mental status exam: General Appearance: Patient appears to be stated age is alert, pleasant, and cooperative. Patient is in no acute distress and has good hygiene and grooming Behavior: Patient is calmly seated without any agitated behavior. Speech: Patient's speech is fluent and nonpressured. Mood/Affect: Patient reports their mood is "much better", affect is congruent and euthymic to bright. Suicidality/Homicidality: Patient denies having any suicidal or homicidal ideation intent or plan. Perceptions: Patient denies any auditory or visual hallucinations. Though content/process: There is no evidence of any delusional thought content and thought process is linear and goal-directed. Patient is future oriented Memory and concentration: AOX3, grossly intact for the purposes of this session. Can spell "WORLD" backwards correctly. Judgment and insight: Improved with guarded prognosis Impression: Major depressive disorder, single episode Tobacco use disorder Plan: -Continue with discharge today as patient has improved and stabilized psychiatrically and is not currently an imminent threat to himself and/or others. Patient will remain at chronically elevated risk for harm to self and/or others due to his prior attempt at suicide. The risk factor firearms has been addressed with the patient's family and the firearms from the home. -Continue medications: Prozac 30 mg by mouth daily for depression/anxiety Trazodone 100 mg by mouth at bedtime for insomnia -Patient was counseled on the need for medication compliance and appropriate follow-up at mental health and also primary care for medical issues. Patient verbalized understanding and agreed. -Social work to arrange for and conduct family meeting to ensure safety upon discharge and answer any questions/concerns. Social work also to arrange for patients follow up appointments with the [facility] for [facility] care along with follow up with primary care provider. -Patient counseled on abstaining from recreational drugs and marijuana and alcohol. Was informed/educated on the adverse effects on their physical and mental health. Patient verbally agreed and understood. -Patient was instructed to return to the hospital or seek immediate medical care if their psychiatric or medical symptoms do worsen or reoccur. -Psychoeducation and supportive therapy provided to patient. Risks and benefits of pharmacological treatment versus the risks and benefits of nontreatment weight and discussed. Informed consent discussion held. Common side effects of psychotropics discussed such as, but not limited to headache, GI disturbance, sexual dysfunction, movement disorders, sedation, and orthostatic hypotension. Life threatening and blackbox warnings of prescribed medications also discussed. Potential risks of operating a vehicle or heavy machinery discussed with patient at length. Advised on importance of compliance and a reliable and responsible manner. Patient advised to review FDA consumer labeling of all medications prior to taking. Patient verbalized understanding of potential risks, and agrees with current treatment plan. Patient advised to medically contact physician/emergency personnel if any acute changes in condition occur. Laboratory Results WBC 10.3 k/uL (3.8-10.6) 02/05/22 09:59 RBC 5.31 m/uL (4.30-5.90) 02/05/22 09:59 Hgb 17.1 gm/dL (13.0-17.5) 02/05/22 09:59 Hct 51.9 % (39.0-53.0) 02/05/22 09:59 MCV 97.7 fL (80.0-100.0) 02/05/22 09:59 MCH 32.3 pg (25.0-35.0) 02/05/22 09:59 MCHC 33.0 g/dL (31.0-37.0) 02/05/22 09:59 RDW 13.4 % (11.5-15.5) 02/05/22 09:59 Plt Count 310 k/uL (150-450) 02/05/22 09:59 MPV 8.4 02/05/22 09:59 Neutrophils % 73 % 02/05/22 09:59 Lymphocytes % 20 % 02/05/22 09:59 Monocytes % 4 % 02/05/22 09:59 Eosinophils % 1 % 02/05/22 09:59 Basophils % 1 % 02/05/22 09:59 Neutrophils # 7.5 k/uL (1.3-7.7) 02/05/22 09:59 Lymphocytes # 2.0 k/uL (1.0-4.8) 02/05/22 09:59 Monocytes # 0.5 k/uL (0-1.0) 02/05/22 09:59 Eosinophils # 0.1 k/uL (0-0.7) 02/05/22 09:59 Basophils # 0.1 k/uL (0-0.2) 02/05/22 09:59 Sodium 139 mmol/L (137-145) 02/05/22 09:59 Potassium 4.0 mmol/L (3.5-5.1) 02/05/22 09:59 Chloride 104 mmol/L (98-107) 02/05/22 09:59 Carbon Dioxide 30 mmol/L (22-30) 02/05/22 09:59 Anion Gap 5 mmol/L 02/05/22 09:59 BUN 14 mg/dL (9-20) 02/05/22 09:59 Creatinine 0.99 mg/dL (0.66-1.25) 02/05/22 09:59 Est GFR (CKD-EPI)AfAm >90 (>60 ml/min/1.73 sqM) 02/05/22 09:59 Est GFR (CKD-EPI)NonAf >90 (>60 ml/min/1.73 sqM) 02/05/22 09:59 Glucose 83 mg/dL (74-99) 02/05/22 09:[address] Glu mg/dL 106 02/05/22 09:59 Hemoglobin A1c 5.3 % (0.0-6.0) 02/05/22 09:59 Calcium 9.1 mg/dL (8.4-10.2) 02/05/22 09:59 Total Bilirubin 1.6 mg/dL (0.2-1.3) H 02/05/22 09:59 Conjugated Bilirubin 0.0 mg/dL (0.0-0.3) 02/05/22 09:59 Unconjugated Bilirubin 1.4 mg/dL (0.0-1.1) H 02/05/22 09:59 Delta Bilirubin 0.2 mg/dL (0.0-0.2) 02/05/22 09:59 AST 28 U/L (17-59) 02/05/22 09:59 ALT 23 U/L (4-49) 02/05/22 09:59 Alkaline Phosphatase 100 U/L (38-126) 02/05/22 09:59 Total Protein 5.9 g/dL (6.3-8.2) L 02/05/22 09:59 Albumin 3.7 g/dL (3.5-5.0) 02/05/22 09:59 Triglycerides 157.00 mg/dL (0.00-149.00) H 02/05/22 09:59 Cholesterol 202.00 mg/dL (0.00-200.00) H 02/05/22 09:59 LDL Cholesterol, Calc 136.3 mg/dL (0.0-131.0) H 02/05/22 09:59 VLDL Cholesterol, Calc 31.40 mg/dL (5.00-40.00) 02/05/22 09:59 HDL Cholesterol 34.30 mg/dL (40.00-60.00) L 02/05/22 09:59 Cholesterol/HDL Ratio 5.89 Ratio 02/05/22 09:59 TSH 2.540 mIU/L (0.465-4.680) 02/05/22 09:59 Urine Opiates Screen Not Detected (NotDetected) 02/04/22 04:01 Ur Oxycodone Screen Not Detected (NotDetected) 02/04/22 04:01 Urine Methadone Screen Not Detected (NotDetected) 02/04/22 04:01 Ur Propoxyphene Screen Not Detected (NotDetected) 02/04/22 04:01 Ur Barbiturates Screen Not Detected (NotDetected) 02/04/22 04:01 U Tricyclic Antidepress Not Detected (NotDetected) 02/04/22 04:01 Ur Phencyclidine Scrn Not Detected (NotDetected) 02/04/22 04:01 Ur Amphetamines Screen Not Detected (NotDetected) 02/04/22 04:01 U Methamphetamines Scrn Not Detected (NotDetected) 02/04/22 04:01 U Benzodiazepines Scrn Not Detected (NotDetected) 02/04/22 04:01 Urine Cocaine Screen Not Detected (NotDetected) 02/04/22 04:01 U Marijuana (THC) Screen Not Detected (NotDetected) 02/04/22 04:01 Coronavirus (PCR) Not Detected (Not Detectd) 02/04/22 17:18 Allergies Allergy/AdvReac Type Severity Reaction Status Date / Time No Known Allergies Allergy Verified 02/04/22 12:23 Vital Signs Temp 98.1 F 02/08/22 05:21 Pulse 87 02/08/22 05:21 Resp 20 02/08/22 05:21 BP 107/74 02/08/22 05:21 Pulse Ox 93 L 02/06/22 07:05 FiO2 Intake & Output 02/07/22 02/08/22 02/08/22 18:59 06:59 18:59 Weight 86.5 kg Patient Condition at Discharge: Stable Plan - Discharge Summary Discharge Rx Participant: Yes New Discharge Prescriptions: New FLUoxetine HCL [PROzac] 30 mg PO DAILY 30 Days cap traZODone HCL [Desyrel] 100 mg PO HS PRN 30 Days tab PRN Reason: Insomnia No Action No Known Home Medications Discharge Medication List No Known Home Medications 02/04/22 [History] FLUoxetine HCL [PROzac] 30 mg PO DAILY 30 Days cap 02/08/22 [Rx] traZODone HCL [Desyrel] 100 mg PO HS PRN 30 Days tab 02/08/22 [Rx] Follow up Appointment(s)/Referral(s): [facility] [NON-STAFF] - 1 Week Patient Instructions/Handouts: Depression (DC) Activity/Diet/Wound Care/Special Instructions: Avoid the use of street drugs and alcohol. Take all prescriptions as prescribed. When you are in need of refills on your medications, please contact your medical provider and/or outpatient psychiatrist to have this done. Please go to scheduled outpatient appointment for aftercare treatment. If symptoms return or become worse, call the crisis line at and/or go to the nearest emergency room for evaluation. Discharge Disposition: HOME SELF-CARE
== END 2022-02-08 13:05 | disposition home or self-care (01) | DRG 881 ==
LOC: EC 03:37 → 3MHU 19:01
PROVIDERS: ADMIT Psychiatry & Neurology Psychiatry; ATTEND Psychiatry & Neurology Psychiatry
DX: F32.9 Major depressive disorder, single episode, unspecified (principal); R45.851 Suicidal ideations; F41.9 Anxiety disorder, unspecified; G47.00 Insomnia, unspecified; Z63.72 Alcoholism and drug addiction in family; K21.9 Gastro-esophageal reflux disease without esophagitis; F15.11 Other stimulant abuse, in remission; F17.210 Nicotine dependence, cigarettes, uncomplicated; F90.9 Attention-deficit hyperactivity disorder, unspecified type; F12.10 Cannabis abuse, uncomplicated; Z71.51 Drug abuse counseling and surveillance of drug abuser; Z71.6 Tobacco abuse counseling; Z71.89 Other specified counseling; Z20.822 Contact with and (suspected) exposure to COVID-19; Z59.89 Other problems related to housing and economic circumstances; Z79.899 Other long term (current) drug therapy; Z81.1 Family history of alcohol abuse and dependence; Z82.49 Family history of ischemic heart disease and other diseases of the circulatory system; Z63.5 Disruption of family by separation and divorce
CPT/HCPCS: 80053; 80061; 80306; 82075; 82248; 83036; 84443; 85025; 87635; 99285

== ENCOUNTER 2023-11-12 11:49 | Emergency (ER) | payer BC ==
[2023-11-12] MEDS: LIDOCAINE 1% INJ 10MG/ML (20 ML MDV) SQ ONE (12:38)
[2023-11-12] MEDS: BENZOCAINE SPRAY 1 CAN MUCOUS MEM STA (12:39)
[2023-11-12 13:06] VITALS: TEMP 98.4
[2023-11-12] MEDS: methylPREDNISolone SOD SUCCI 125 MG/2 ML VIAL IM ONE (13:54)
--- NOTE | 2023-11-12 13:57 | ED ---
General Adult HPI - General Chief complaint: Dental/Oral Stated complaint: Right sided facial swelling Time Seen by Provider: 11/12/23 11:53 Source: patient, RN notes reviewed Mode of arrival: ambulatory Limitations: no limitations - History of Present Illness Initial comments: 43-year-old male presents to the emergency department for evaluation of right- sided facial swelling. He states that this started somewhat yesterday but has gotten worse today prompting his presentation to the ED. He does report prior episodes of this in which she had a dental abscess that his dentist drained. He states that his dentist is closed today. He reports that he has been taking amoxicillin which he had at home. He admits to taking around 4 doses. He denies fever, chills, nausea, vomiting, sinus pressure, headache, vision changes. - Related Data Previous Rx's Medication Instructions Recorded FLUoxetine HCL [PROzac] 30 mg PO DAILY 30 Days cap 02/08/22 traZODone HCL [Desyrel] 100 mg PO HS PRN 30 Days tab 02/08/22 Amoxic-Pot Clav 875-125Mg 1 tab PO Q12HR #20 tab 11/12/23 [Augmentin 875-125] Allergies Allergy/AdvReac Type Severity Reaction Status Date / Time No Known Allergies Allergy Verified 11/12/23 11:52 Review of Systems ROS Statement: Those systems with pertinent positive or pertinent negative responses have been documented in the HPI. ROS Other: All systems not noted in ROS Statement are negative. Past Medical History Past Medical History: GERD/Reflux Additional Past Medical History / Comment(s): Past tension headaches History of Any Multi-Drug Resistant Organisms: None Reported Past Surgical History: No Surgical Hx Reported Additional Past Surgical History / Comment(s): Pt has never had surgery Past Anesthesia/Blood Transfusion Reactions: Unable to Obtain Past Psychological History: ADD/ADHD Smoking Status: Current every day smoker Past Alcohol Use History: Occasional Past Drug Use History: None Reported - Past Family History Father Family Medical History: Myocardial Infarction ([place]) Additional Family Medical History / Comment(s): Father of a [place] at the age of 62 yrs. Mother Family Medical History: No Reported History Additional Family Medical History / Comment(s): Mother is healthy General Exam Limitations: no limitations General appearance: alert, in no apparent distress Eye exam: Present: normal appearance, PERRL, EOMI. Absent: scleral icterus, conjunctival injection, periorbital swelling ENT exam: Present: normal oropharynx, mucous membranes moist, other (swelling to right side of face, visible dental abscess to maxillary region of tooth 3) Neck exam: Present: normal inspection. Absent: tenderness, meningismus, lymphadenopathy Respiratory exam: Present: normal lung sounds bilaterally. Absent: respiratory distress, wheezes, rales, rhonchi, stridor Cardiovascular Exam: Present: regular rate, normal rhythm, normal heart sounds. Absent: systolic murmur, diastolic murmur, rubs, gallop, clicks Extremities exam: Present: normal inspection, full ROM, normal capillary refill. Absent: tenderness, pedal edema, joint swelling, calf tenderness Back exam: Present: normal inspection Neurological exam: Present: alert, oriented X3 Psychiatric exam: Present: normal affect, normal mood Skin exam: Present: warm, dry, intact, normal color. Absent: rash Course Vital Signs 11/12/23 11/12/23 11/12/23 11:50 13:07 14:19 Temperature 98.4 F Pulse Rate 114 H 83 82 Respiratory 18 16 18 Rate Blood Pressure 144/91 143/91 171/111 O2 Sat by Pulse 99 96 99 Oximetry Procedures - Incision & Drainage Consent Obtained: verbal consent Site: oral Anesthetic Used: benzocaine 0.25% I&D Cleaning Method: Iodine Scalpel Used: #11 I&D Drainage Obtained: Pus, Blood Patient Tolerated Procedure: well, no complications Medical Decision Making - Medical Decision Making Was pt. sent in by a medical professional or institution (, PA, REAL ESTATE OPERATIONS MANAGER, urgent care, hospital, or correction...) When possible be specific @ -No Did you speak to anyone other than the patient for history (EMS, parent, family, police, friend...)? What history was obtained from this source @ -No Did you review nursing and triage notes (agree or disagree)? Why? @ -I reviewed and agree with nursing and triage notes Were old charts reviewed (outside hosp., previous admission, EMS record, old EKG, old radiological studies, urgent care reports/EKG's, correction records)? Report findings @ -No old charts were reviewed Differential Diagnosis (chest pain, altered mental status, abdominal pain women, abdominal pain men, vaginal bleeding, weakness, fever, dyspnea, syncope, headache, dizziness, GI bleed, back pain, seizure, CVA, palpatations, mental health, musculoskeletal)? @ -Dental infection, dental abscess, dental appliance issue, parotiditis, strep throat, this list is not all inclusive EKG interpreted by me (3pts min.). @ -None X-rays interpreted by me (1pt min.). @ -None done CT interpreted by me (1pt min.). @ -None done U/S interpreted by me (1pt. min.). @ -None done What testing was considered but not performed or refused? (CT, X-rays, U/S, labs)? Why? @ -None What meds were considered but not given or refused? Why? @ -None Did you discuss the management of the patient with other professionals (professionals i.e. , PA, REAL ESTATE OPERATIONS MANAGER, lab, RT, psych nurse, clinical social work aide, regional sales trainer, teacher, precinct commanding officer, community case manager)? Give summary @ -No Was smoking cessation discussed for >3mins.? @ -No Was critical care preformed (if so, how long)? @ -No Were there social determinants of health that impacted care today? How? (Homelessness, low income, unemployed, alcoholism, drug addiction, transportation, low edu. Level, literacy, decrease access to med. care, shelter, rehab)? @ -No Was there de-escalation of care discussed even if they declined (Discuss DNR or withdrawal of care, Hospice)? DNR status @ -No What co-morbidities impacted this encounter? (DM, HTN, Smoking, COPD, CAD, Cancer, CVA, ARF, Chemo, Hep., AIDS, mental health diagnosis, sleep apnea, morbid obesity)? @ -None Was patient admitted / discharged? Hospital course, mention meds given and route, prescriptions, significant lab abnormalities, going to OR and other pertinent info. @ -Discharged. Patient presented for evaluation of right-sided facial swelling. Patient has visible dental abscess. Patient provided dose of solu- medrol for inflammation. Dental abscess visible to right maxillary region. This was drained, purulent drainage obtained. Patient provided dose of antibiotics and steroid in the emergency department. Prescription sent to patient's pharmacy for continued antibiotics. Advised patient to follow-up with his dentist on Tuesday. Strict return precautions discussed. Patient understanding agreeable with plan. Patient stable at time of discharge. Case discussed with Dr. Sotelo. Undiagnosed new problem with uncertain prognosis? @ -No Drug Therapy requiring intensive monitoring for toxicity (Heparin, Nitro, Insulin, Cardizem)? @ -No Were any procedures done? @ -Dental abscess drainage Diagnosis/symptom? @ -Dental abscess Acute, or Chronic, or Acute on Chronic? @ -acute Uncomplicated (without systemic symptoms) or Complicated (systemic symptoms)? @ -uncomplicated Side effects of treatment? @ -No Exacerbation, Progression, or Severe Exacerbation? @ -No Poses a threat to life or bodily function? How? (Chest pain, [place], [place], pneumonia, PE, COPD, DKA, ARF, appy, cholecystitis, CVA, Diverticulitis, Homicidal, Suicidal, threat to staff... and all critical care pts) @ -No Disposition Clinical Impression: Dental abscess Disposition: HOME SELF-CARE Condition: Stable Instructions (If sedation given, give patient instructions): Dental Abscess (ED) Additional Instructions: Please pickling solution maker antibiotics and take to completion. Utilize warm salt water gargles and compressed. Follow up with Dr. Andrade on Tuesday. Return to the emergency department for new or worsening symptoms. Prescriptions: Amoxic-Pot Clav 875-125Mg [Augmentin 875-125] 1 tab PO Q12HR #20 tab Is patient prescribed a controlled substance at d/c from ED?: No Referrals: None,Stated [Primary Care Provider] - 1-2 days
[2023-11-12] MEDS: cefTRIAXone 1,000 MG VIAL (IM USE) IM STA (14:10)
[2023-11-12 14:23] VITALS: BP 171/111; PULSE 82; RESP 18
== END 2023-11-12 14:22 | disposition home or self-care (01) ==
LOC: EC 11:49
DX: K04.7 Periapical abscess without sinus (principal); F17.200 Nicotine dependence, unspecified, uncomplicated
CPT/HCPCS: 41800; 99283; 96372 ×2; J2001; J0696; J2919

== ENCOUNTER 2024-01-05 21:33 | Emergency (ER) | payer BC, OTHER ==
[2024-01-05 21:36] VITALS: RESP 18; TEMP 97.4
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
[2024-01-05] MEDS: LIDOCAINE 4% PATCH TOPICAL ONE (22:26)
[2024-01-05] MEDS: KETOROLAC 15 MG/ML 1 ML VIAL IM STA (22:27)
[2024-01-05] MEDS: MORPHINE SULFATE 4 MG/ML SYRINGE IM STA (22:30)
[2024-01-05] MEDS: ORPHENADRINE 30 MG/ML 2 ML VIAL IM STA (22:32)
[2024-01-05] MEDS: ACET/COD 300 MG/30 MG STARTER PACK 6 TAB BTL PO STA (23:04)
[2024-01-05 23:08] VITALS: BP 148/96; PULSE 82
== END 2024-01-05 23:10 | disposition home or self-care (01) ==
LOC: EC 21:33
DX: M54.9 Dorsalgia, unspecified (principal); F17.200 Nicotine dependence, unspecified, uncomplicated
CPT/HCPCS: 99283; 96372 ×3; J2270; J2360; J1885